=== PATIENT | male | born 1995 | race American Indian/Alaskan Native ===

== ENCOUNTER 2017-04-16 14:04 | Emergency (ER) | payer SELFPAY ==
[2017-04-16 14:16] VITALS: BP 145/71
--- NOTE | 2017-04-16 17:06 | Emergency Department Report ---
ED Rash HPI - HPI Chief Complaint: Skin Rash Stated Complaint: Itching to Penis Time Seen by Provider: 04/16/17 16:23 Duration: 3 Days Location: Other (patient reports itching into private area 3 days. He denies any penile discharge. He said he has a rash to his private area. Denies any urinary burning frequency or urgency. Patient has no concern for STDs he said he is just itching and. Denies unsafe sex. Denies any nausea vomiting or diarrhea. Denies any abdominal or back pain.) Suspected Cause: Unknown Rash Symptoms: Yes Itching (genital area ), No Facial Swelling, No Tongue/Oral Swelling, No Breathing Difficulties, No Choking Sensation, No Wheezing/Dyspnea, No Peeling, No Blistering, No Fever, No Lightheaded, No Malaise, No Myalgias ( patient has no pain) Severity: moderate (reports moderate itching into genital area) Other History: H and he reports that he has itching to his genital area that's been ongoing for 3 days. Patient denies discharge he said he has rash to his genital area with itching. Denies any pain. Denies any urinary burning frequency or urgency. Denies any blood in his urine. Denies any back or abdominal pain. Denies any nausea or vomiting. Denies any fever or chills. Denies any medical or surgical problems and he reports that he practices safe sex. ED Review of Systems ROS: Stated complaint: POSSIBLE STD Other details as noted in HPI Comment: All other systems reviewed and negative Constitutional: no symptoms reported ENT: denies: throat pain Respiratory: no symptoms reported Cardiovascular: denies: chest pain, palpitations, edema, syncope Gastrointestinal: denies: abdominal pain, nausea, vomiting, constipation, hematemesis, melena, hematochezia Genitourinary: other (Itching genital area with rash). 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 No distress. Alert and acting appropriately. This is a 22-year-old male well-nourished well-developed in no acute distress. : Scrotal and testicular exam is normal without any rash. Expression of penis revealed no drainage from meatus. Patient with lipoma that is located distal, in the lateral penile shaft. Nontender to palpate. No erythema. HEENT: No Periorbital Edema, No Conjuctival Injection, No Chemosis, No Perioral Edema, No Tongue Edema, No Uvular Edema, No Compromised Airway, No Drooling Lungs: Yes Good Air Exchange, No Wheezes, No Ronchi, No Stridor, No Cough, No Labored Respirations, No Retractions, No Use of Accessory Muscles, No Other Abnormal Lung Sounds Heart: Yes Regular, No Murmur Skin: Yes Maculopapular Rash (anterior penile shaft scattered sparsely. Nontender to palpate), Yes Excoriations (patient with erythema patches to bilateral groin extending down to the medial thigh, borders are well demarcated with milder erythema to Center of patches. Patient also has papular rash to penile shaft anteriorly which is nontender to palpate. No signs of infection.) , Yes Other (patient with soft round mass to distal right penile soft. No erythema. Nontender to palpate.), No Urticarial Rash, No Morbilliform rash, No Bulla(e), No Weeping, No Tenderness, No Erythema, No Edema Other: Positive: Abdomen Normal, Neurologic Normal, Musculoskeletal Normal ED Course Vital Signs 04/16/17 14:14 Temperature 98.9 F Pulse Rate 78 Respiratory 16 Rate Blood Pressure 145/71 O2 Sat by Pulse 98 Oximetry - Reevaluation(s) Reevaluation #1: 04/16/17 17:19 stable throughout ED course. ED Medical Decision Making - Medical Decision Making ED course: In here complaining of itching to his groin and penis area. He denies any penile discharge or concern for STD. Denies any blood in his urine, urinary burning frequency or urgency. Physical findings for tinea cruris with some areas of patches to groin and inner medial thigh and macular papular, nontender, no erythema to the anterior penile shaft. Patient has no penile discharge and is scrotum is normal and testicular exam is normal. Diagnosis with tinea cruris , pruritus and other rash of the penis. Patient Penaloza lipoma to his penile shaft which she said has been there and he's been seen by a doctor who told him that it is not abnormal that he will need to have surgery to remove it. Patient voiced understanding the diagnosis and treatment plan. She discharged home with prescription for Diflucan , prednisoneand econazole cream Critical care attestation.: If time is entered above; I have spent that time in minutes in the direct care of this critically ill patient, excluding procedure time. ED Disposition Clinical Impression: Tinea cruris, Pruritus and related conditions, Hx of lipoma, Acute maculopapular rash Disposition: TO HOME OR SELFCARE Is pt being admited?: No Does the pt Need Aspirin: No Condition: Stable Instructions: Acute Rash (ED), Jock Itch (ED), Itchy Skin (ED) Additional Instructions: Please follow-up with your primary care physician in 2-3 days and if he do not have one you can follow-up at [facility] Please continue to practice safe sex. 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 If you want this to be removed, you would have to see a surgeon. Take medication as prescribed Keep affected area clean and dry Prescriptions: Econazole 1% [Spectazole] 10 applic TP BID #1 tube Fluconazole [Diflucan TAB] 100 mg PO QDAY #3 tablet predniSONE [Deltasone] 50 mg PO QDAY #5 tab Referrals: PRIMARY CAREMD [Primary Care Provider] - 2-3 Days [facility] [Outside] - 2-3 Days ISADORA HERNANDEZ MD [Staff Physician] - 2-3 Days Forms: Work/School Release Form(ED)
== END 2017-04-16 17:40 | disposition home or self-care (01) ==
LOC: ED 14:04
DX: B35.6 Tinea cruris (principal); F17.210 Nicotine dependence, cigarettes, uncomplicated
CPT/HCPCS: 99282